=== PATIENT | male | born 1935 | race Caucasian/White ===

== ENCOUNTER 2019-08-26 12:02 | Inpatient (IN) ==
[2019-08-26] MEDS ORDERED: SODIUM CHLORIDE 0.9% 1,000 ML IV STA (12:39)
[2019-08-26] MEDS ORDERED: cefTRIAXone 1,000 MG in SODIUM CHLORIDE 0.9% 100 ML IV STA (12:39)
[2019-08-26] MEDS ORDERED: AZITHROMYCIN INJ 500 MG in SODIUM CHLORIDE 0.9% 250 ML IV STA (12:39)
[2019-08-26] MEDS ORDERED: methylPREDNISolone SOD SUC 125 MG/2 ML VIAL IV STA (12:39)
[2019-08-26] MEDS ORDERED: ALBUTEROL 2.5 MG/3 ML NEB RESP TX SCH (13:00)
[2019-08-26 13:52] LABS: Basophils % 0.8 % (0.0-0.8); Hematocrit 31.7 VOL% (42.0-52.0); Hemoglobin 10.7 GM/DL (14.0-18.0); Immature Granulocytes % 4.1 %; Immature Granulocytes Absolute 0.16 #; Lymphocytes # 1.9 10*3/uL (1.4-4.0); Lymphocytes % 48.6 % (21.2-54.2); Mean Corpuscular HGB Conc 33.8 GM/DL (32-36); Mean Corpuscular Volume 103.3 FL (87-102); Mean Platelet Volume 10.3 FL (9.6-12.0); Neutrophils % 36.5 % (38.7-73.9); Red Blood Count 3.07 MC/CUMM (3.8-5.5); Red Cell Distribution Width 16.2 % (9.3-17.3); White Blood Count 3.9 T/CUMM (4-12)
[2019-08-26 13:55] LABS: Platelet Count 30 T/CUMM (130-400)
[2019-08-26 14:00] LABS: INR 1.2; PT Patient Result 13.4 SECS (9.6-12.2); Partial Thromboplastin Time 26.2 SECS (20.8-36.0)
[2019-08-26 14:08] LABS: Alanine Aminotransferase 26 U/L (16-61); Albumin 2.9 G/DL (3.4-5.0); Alkaline Phosphatase 43 U/L (45-117); Aspartate Amino Transferase 23 U/L (0-37); Blood Urea Nitrogen 41 MG/DL (7-18); Calcium 8.4 MG/DL (8.5-10.1); Estimated Glom Filtration Rate 40 ML/MIN; Glucose 130 MG/DL (74-106); Osmolality,Calculated 284.8 MOS/KG (273-304); Total Protein 7.6 G/DL (6.4-8.3); Troponin I 0.048 NG/ML (0.00-0.045)
[2019-08-26 14:22] LABS: Anisocytosis 3+; Band Neutrophils 2 % (0-10); Lymphocytes 60 % (20-55); Macrocytosis 3+; Microcytosis 1+; Platelet Estimate Decreased; Polychromasia Slight; Reactive Lymphocytes 2+; Segmented Neutrophils 25 % (50-85); Total Cells Counted 100
[2019-08-26] MEDS ORDERED: traZODone 50 MG TABLET PO PRN (15:46)
[2019-08-26] MEDS ORDERED: ONDANSETRON 4 MG/2 ML VIAL IV PRN (15:46)
[2019-08-26] MEDS ORDERED: BISACODYL 5 MG TABLET PO PRN (15:46)
[2019-08-26] MEDS: ALBUTEROL/IPRATROPIUM 3 ML NEB RESP TX SCH (19:48)
[2019-08-26] MEDS: predniSONE 20 MG TABLET PO SCH (21:06)
[2019-08-26] MEDS: LACTATED RINGERS 1,000 ML IV SCH (21:07)
[2019-08-27] MEDS: ALBUTEROL/IPRATROPIUM 3 ML NEB RESP TX SCH ×4 (01:47→19:19)
[2019-08-27 04:52] LABS: Basophils % 0.6 % (0.0-0.8); Hematocrit 26.4 VOL% (42.0-52.0); Immature Granulocytes % 8.7 %; Immature Granulocytes Absolute 0.27 #; Lymphocytes # 0.9 10*3/uL (1.4-4.0); Lymphocytes % 29.3 % (21.2-54.2); Mean Corpuscular HGB Conc 34.1 GM/DL (32-36); Mean Corpuscular Volume 102.3 FL (87-102); Mean Platelet Volume 10.9 FL (9.6-12.0); Monocytes % 11.9 % (1.7-12.7); Neutrophils % 49.5 % (38.7-73.9); Red Blood Count 2.58 MC/CUMM (3.8-5.5); Red Cell Distribution Width 16.4 % (9.3-17.3); White Blood Count 3.1 T/CUMM (4-12)
[2019-08-27 05:03] LABS: Platelet Count 27 T/CUMM (130-400)
[2019-08-27 05:18] LABS: Calcium 7.6 MG/DL (8.5-10.1); Osmolality,Calculated 302.8 MOS/KG (273-304)
[2019-08-27 05:43] LABS: Band Neutrophils 8 % (0-10); Lymphocytes 28 % (20-55); Metamyelocytes 2 %; Platelet Estimate Decreased; Segmented Neutrophils 40 % (50-85); Total Cells Counted 100
[2019-08-27] MEDS ORDERED: GLUCAGON 1 MG VIAL IM PRN ×2 (07:20→07:55)
[2019-08-27] MEDS ORDERED: DEXTROSE 50% 25 GM/50 ML VIAL IV PRN ×2 (07:20→07:55)
[2019-08-27] MEDS: cefTRIAXone 1,000 MG in SYRINGE 1 EACH IV SCH (08:46)
[2019-08-27] MEDS: predniSONE 20 MG TABLET PO SCH ×2 (08:47→21:16)
[2019-08-27] MEDS: METOPROLOL SUCCINATE XL 25 MG TABLET PO SCH (08:47)
[2019-08-27] MEDS: LACTATED RINGERS 1,000 ML IV SCH ×2 (08:52→17:20)
[2019-08-27] MEDS: INSULIN REGULAR 100 UNIT/ML SUBCUT SCH ×3 (12:01→21:15)
[2019-08-27] MEDS: AZITHROMYCIN INJ 500 MG in SODIUM CHLORIDE 0.9% 250 ML IV SCH (17:31)
[2019-08-28 00:58] LABS: Apearance,Urine CLOUDY (Clear); Bilirubin,Urine Negative (Negative); Blood, Urine Large mg/dL (Negative); Glucose,Urine (UA) 150 mg/dL (Negative); Granular Casts,Urine 3 /LPF (0-1); Ketones,Urine Negative (Negative); Mucus,Urine Occasional /LPF (Occasional); Nitrite,Urine Negative (Negative); Protein,Urine 30 MG/DL; RBC,Urine 379 /HPF (0-4); Squamous Epithelial Cell,Urine Occasional /HPF (0-10); Urine Color Yellow (Yellow); Urine Specific Gravity 1.017 (1.001-1.035); Urine Urobilinogen < 2.0 EU/DL (0.2-1.0); WBC,Urine 43 /HPF (0-6)
[2019-08-28] MEDS: ALBUTEROL/IPRATROPIUM 3 ML NEB RESP TX SCH ×4 (00:59→19:58)
[2019-08-28 04:53] LABS: Basophils % 0.9 % (0.0-0.8); Hematocrit 25.9 VOL% (42.0-52.0); Hemoglobin 8.9 GM/DL (14.0-18.0); Immature Granulocytes % 8.2 %; Immature Granulocytes Absolute 0.26 #; Mean Corpuscular HGB Conc 34.4 GM/DL (32-36); Mean Corpuscular Volume 101.6 FL (87-102); Mean Platelet Volume 10.9 FL (9.6-12.0); Monocytes % 20.3 % (1.7-12.7); Neutrophils % 39.6 % (38.7-73.9); Red Blood Count 2.55 MC/CUMM (3.8-5.5); Red Cell Distribution Width 16.4 % (9.3-17.3); White Blood Count 3.2 T/CUMM (4-12)
[2019-08-28 05:01] LABS: Platelet Count 20 T/CUMM (130-400)
[2019-08-28 05:06] LABS: Calcium 7.3 MG/DL (8.5-10.1)
[2019-08-28 05:21] LABS: Hypochromasia 1+; Lymphocytes 27 % (20-55); Ovalocytes Slight; Platelet Estimate Decreased; Segmented Neutrophils 47 % (50-85); Total Cells Counted 100
[2019-08-28] MEDS: predniSONE 20 MG TABLET PO SCH ×2 (08:45→21:50)
[2019-08-28] MEDS: INSULIN REGULAR 100 UNIT/ML SUBCUT SCH ×4 (08:45→21:50)
[2019-08-28] MEDS: METOPROLOL SUCCINATE XL 25 MG TABLET PO SCH (08:45)
[2019-08-28] MEDS: cefTRIAXone 1,000 MG in SYRINGE 1 EACH IV SCH (08:46)
[2019-08-28] MEDS ORDERED: SODIUM CHLORIDE 0.9% 1,000 ML IV PRN (10:11)
[2019-08-28] MEDS: AZITHROMYCIN INJ 500 MG in SODIUM CHLORIDE 0.9% 250 ML IV SCH (18:31)
[2019-08-29] MEDS: ALBUTEROL/IPRATROPIUM 3 ML NEB RESP TX SCH ×4 (01:22→19:25)
[2019-08-29 06:50] LABS: Basophils % 0.8 % (0.0-0.8); Hematocrit 24.4 VOL% (42.0-52.0); Hemoglobin 8.2 GM/DL (14.0-18.0); Immature Granulocytes Absolute 0.12 #; Lymphocytes # 1.1 10*3/uL (1.4-4.0); Lymphocytes % 45.8 % (21.2-54.2); Mean Corpuscular HGB Conc 33.6 GM/DL (32-36); Mean Corpuscular Volume 102.5 FL (87-102); Mean Platelet Volume 10.5 FL (9.6-12.0); Monocytes % 17.1 % (1.7-12.7); Neutrophils % 31.3 % (38.7-73.9); Red Blood Count 2.38 MC/CUMM (3.8-5.5); Red Cell Distribution Width 16.7 % (9.3-17.3); White Blood Count 2.4 T/CUMM (4-12)
[2019-08-29 06:54] LABS: Platelet Count 45 T/CUMM (130-400)
[2019-08-29 07:06] LABS: Calcium 7.6 MG/DL (8.5-10.1); Osmolality,Calculated 306.4 MOS/KG (273-304)
[2019-08-29 07:19] LABS: Atypical Lymphocytes Few; Band Neutrophils 1 % (0-10); Hypochromasia 1+; Lymphocytes 43 % (20-55); Ovalocytes Slight; Platelet Estimate Decreased; Segmented Neutrophils 33 % (50-85); Total Cells Counted 100
[2019-08-29] MEDS: INSULIN REGULAR 100 UNIT/ML SUBCUT SCH ×4 (08:01→20:10)
[2019-08-29] MEDS: cefTRIAXone 1,000 MG in SYRINGE 1 EACH IV SCH (10:22)
[2019-08-29] MEDS: AZITHROMYCIN INJ 500 MG in SODIUM CHLORIDE 0.9% 250 ML IV SCH (10:24)
[2019-08-29] MEDS: cefTRIAXone 2,000 MG in SYRINGE 1 EACH IV SCH (11:40)
[2019-08-29] MEDS: SODIUM CHLORIDE 0.9% IV SCH (11:41)
[2019-08-29] MEDS: AZACITIDINE IV SCH (11:41)
[2019-08-29] MEDS: AZITHROMYCIN 250 MG TABLET PO SCH (11:41)
[2019-08-29] MEDS: METOPROLOL SUCCINATE XL 25 MG TABLET PO SCH (11:41)
[2019-08-29] MEDS: predniSONE 20 MG TABLET PO SCH (11:41)
[2019-08-30] MEDS: ALBUTEROL/IPRATROPIUM 3 ML NEB RESP TX SCH ×4 (00:40→19:56)
[2019-08-30 05:05] LABS: Basophils % 0.4 % (0.0-0.8); Hematocrit 27.6 VOL% (42.0-52.0); Hemoglobin 9.4 GM/DL (14.0-18.0); Immature Granulocytes % 7.9 %; Immature Granulocytes Absolute 0.19 #; Lymphocytes # 1.7 10*3/uL (1.4-4.0); Lymphocytes % 68.9 % (21.2-54.2); Mean Corpuscular HGB Conc 34.1 GM/DL (32-36); Mean Corpuscular Volume 104.5 FL (87-102); Mean Platelet Volume 11.4 FL (9.6-12.0); Monocytes % 8.7 % (1.7-12.7); Neutrophils % 14.1 % (38.7-73.9); Red Blood Count 2.64 MC/CUMM (3.8-5.5); Red Cell Distribution Width 16.3 % (9.3-17.3); White Blood Count 2.4 T/CUMM (4-12)
[2019-08-30 05:17] LABS: Calcium 7.9 MG/DL (8.5-10.1); Osmolality,Calculated 300.7 MOS/KG (273-304)
[2019-08-30 05:31] LABS: Platelet Count 36 T/CUMM (130-400)
[2019-08-30 05:53] LABS: Total Cells Counted 100
[2019-08-30 05:54] LABS: Atypical Lymphocytes Few; Hypochromasia 1+; Lymphocytes 72 % (20-55); Ovalocytes Slight; Platelet Estimate Decreased; Segmented Neutrophils 11 % (50-85)
[2019-08-30] MEDS: predniSONE 20 MG TABLET PO SCH (09:03)
[2019-08-30] MEDS: AZITHROMYCIN 250 MG TABLET PO SCH (09:03)
[2019-08-30] MEDS: METOPROLOL SUCCINATE XL 25 MG TABLET PO SCH (09:03)
[2019-08-30] MEDS: INSULIN REGULAR 100 UNIT/ML SUBCUT SCH ×4 (09:05→21:02)
[2019-08-30] MEDS: cefTRIAXone 2,000 MG in SYRINGE 1 EACH IV SCH (09:19)
[2019-08-30] MEDS: AZACITIDINE IV SCH (10:14)
[2019-08-30] MEDS: SODIUM CHLORIDE 0.9% IV SCH (10:14)
[2019-08-31] MEDS: ALBUTEROL/IPRATROPIUM 3 ML NEB RESP TX SCH ×3 (02:03→14:42)
[2019-08-31 04:39] LABS: Basophils % 0.6 % (0.0-0.8); Hemoglobin 8.8 GM/DL (14.0-18.0); Immature Granulocytes % 5.6 %; Lymphocytes # 1.2 10*3/uL (1.4-4.0); Lymphocytes % 64.2 % (21.2-54.2); Mean Corpuscular HGB Conc 33.8 GM/DL (32-36); Mean Platelet Volume 11.3 FL (9.6-12.0); Monocytes % 14.5 % (1.7-12.7); Neutrophils % 15.1 % (38.7-73.9); White Blood Count 1.8 T/CUMM (4-12)
[2019-08-31 05:03] LABS: Platelet Count 29 T/CUMM (130-400)
[2019-08-31 05:30] LABS: Atypical Lymphocytes Few; Eosinophils 1 % (0-10); Lymphocytes 64 % (20-55); Segmented Neutrophils 13 % (50-85); Total Cells Counted 100
[2019-08-31 05:31] LABS: Hypochromasia 1+
[2019-08-31 05:32] LABS: Anisocytosis 1+; Macrocytosis 1+; Ovalocytes Slight; Platelet Estimate Decreased
[2019-08-31] MEDS: INSULIN REGULAR 100 UNIT/ML SUBCUT SCH ×2 (08:05→11:40)
[2019-08-31] MEDS: predniSONE 20 MG TABLET PO SCH (09:25)
[2019-08-31] MEDS: cefTRIAXone 2,000 MG in SYRINGE 1 EACH IV SCH (09:25)
[2019-08-31] MEDS: METOPROLOL SUCCINATE XL 25 MG TABLET PO SCH (09:25)
[2019-08-31] MEDS: SODIUM CHLORIDE 0.9% IV SCH (09:51)
[2019-08-31] MEDS: AZACITIDINE IV SCH (09:51)
[2019-08-31 12:00] VITALS: BP 116/70
== END 2019-08-31 15:19 | disposition home or self-care (01) | DRG 841 ==
LOC: N.ED 12:02 → N.EDINP 15:46 → SUATTDRO 15:46 → N.2E 16:41 → N.4E 08-29 09:03
PROVIDERS: ADMIT Internal Medicine Cardiovascular Disease; ATTEND Internal Medicine

== ENCOUNTER 2019-09-26 11:10 | Observation (INO) ==
[2019-09-26] MEDS ORDERED: chlorproMAZINE INJ 25 MG in SODIUM CHLORIDE 0.9% 100 ML IV PRN (11:13)
[2019-09-26] MEDS ORDERED: MAGNESIUM HYDROXIDE SUSP 30 ML UDCUP PO PRN (11:13)
[2019-09-26] MEDS ORDERED: BENZTROPINE 2 MG/2 ML AMP IV PRN (11:13)
[2019-09-26] MEDS ORDERED: diphenhydrAMINE CAP 25 MG CAPSULE PO PRN (11:13)
[2019-09-26] MEDS ORDERED: ALPRAZolam 0.25 MG TABLET PO PRN (11:13)
[2019-09-26] MEDS ORDERED: MYLANTA/LIDO VISC 2:1 300 ML BOTTLE SWISH/SWAL PRN (11:13)
[2019-09-26] MEDS ORDERED: ALUMINUM/MAGNES/SIMETH MAX STR 30 ML UDCUP PO PRN (11:13)
[2019-09-26] MEDS ORDERED: MYLANTA/LIDO VISC 2:1 300 ML BOTTLE SWISH/SPIT PRN (11:13)
[2019-09-26] MEDS ORDERED: LOPERAMIDE 2 MG CAPSULE PO PRN ×2 (11:13)
[2019-09-26] MEDS ORDERED: LACTULOSE 20 GM/30 ML UDCUP PO PRN (11:13)
[2019-09-26] MEDS ORDERED: PROMETHAZINE INJ 25 MG in SODIUM CHLORIDE 0.9% 50 ML IV PRN (11:13)
[2019-09-26] MEDS ORDERED: guaiFENesin 200 MG/10 ML UDCUP PO PRN (11:13)
[2019-09-26] MEDS ORDERED: ONDANSETRON 4 MG/2 ML VIAL IV PRN (11:13)
[2019-09-26] MEDS ORDERED: TEMAZEPAM 7.5 MG CAPSULE PO PRN (11:13)
[2019-09-26] MEDS ORDERED: chlorproMAZINE INJ 50 MG in SODIUM CHLORIDE 0.9% 100 ML IV PRN (11:13)
[2019-09-26] MEDS ORDERED: traMADol 50 MG TABLET PO PRN (11:13)
[2019-09-26] MEDS ORDERED: chlorproMAZINE 25 MG TABLET PO PRN (11:13)
[2019-09-26] MEDS ORDERED: ACETAMINOPHEN 325 MG TABLET PO PRN (11:13)
[2019-09-26] MEDS ORDERED: SODIUM CHLORIDE 0.9% 1,000 ML IV PRN (12:24)
[2019-09-26] MEDS ORDERED: cefTRIAXone 1,000 MG in SYRINGE 1 EACH IV SCH (12:30)
[2019-09-26 21:33] LABS: Apearance,Urine CLOUDY (Clear); Bilirubin,Urine Negative (Negative); Blood, Urine Moderate mg/dL (Negative); Glucose,Urine (UA) Negative (Negative); Ketones,Urine Negative (Negative); Mucus,Urine Occasional /LPF (Occasional); Nitrite,Urine Negative (Negative); Protein,Urine 30 MG/DL; RBC,Urine 53 /HPF (0-4); Squamous Epithelial Cell,Urine Occasional /HPF (0-10); Urine Color Yellow (Yellow); Urine Urobilinogen < 2.0 EU/DL (0.2-1.0); WBC,Urine 366 /HPF (0-6)
[2019-09-27 04:41] LABS: Basophils # 0.1 10*3/uL (0.0-0.2); Basophils % 1.2 % (0.0-0.8); Hematocrit 24.8 VOL% (42.0-52.0); Hemoglobin 8.5 GM/DL (14.0-18.0); Immature Granulocytes % 27.1 %; Immature Granulocytes Absolute 1.38 #; Lymphocytes # 1.6 10*3/uL (1.4-4.0); Lymphocytes % 30.5 % (21.2-54.2); Mean Corpuscular HGB Conc 34.3 GM/DL (32-36); Mean Platelet Volume 10.2 FL (9.6-12.0); Monocytes % 9.8 % (1.7-12.7); Neutrophils % 31.4 % (38.7-73.9); Red Blood Count 2.53 MC/CUMM (3.8-5.5); Red Cell Distribution Width 15.5 % (9.3-17.3); White Blood Count 5.1 T/CUMM (4-12)
[2019-09-27 04:53] LABS: Platelet Count 26 T/CUMM (130-400)
[2019-09-27 05:03] LABS: Eosinophils 2 % (0-10); Lymphocytes 35 % (20-55); Segmented Neutrophils 49 % (50-85); Total Cells Counted 100
[2019-09-27 05:04] LABS: Hypochromasia Slight; Macrocytosis Slight; Platelet Estimate Decreased
[2019-09-27 05:05] LABS: Atypical Lymphocytes Few
[2019-09-27 08:24] VITALS: BP 94/51
== END 2019-09-27 10:01 | disposition home or self-care (01) ==
LOC: N.4E
PROVIDERS: ADMIT Specialist; ATTEND Specialist

== ENCOUNTER 2020-04-09 19:35 | Inpatient (IN) ==
[2020-04-09 20:10] LABS: Hematocrit 24.9 VOL% (42.0-52.0); Hemoglobin 8.3 GM/DL (14.0-18.0); Immature Granulocytes % 1.1 %; Immature Granulocytes Absolute 0.04 #; Lymphocytes # 1.5 10*3/uL (1.4-4.0); Lymphocytes % 42.8 % (21.2-54.2); Mean Corpuscular HGB Conc 33.3 GM/DL (32-36); Mean Corpuscular Volume 101.2 FL (87-102); Monocytes % 49.4 % (1.7-12.7); Neutrophils % 6.7 % (38.7-73.9); Red Blood Count 2.46 MC/CUMM (3.8-5.5); Red Cell Distribution Width 16.2 % (9.3-17.3); White Blood Count 3.5 T/CUMM (4-12)
[2020-04-09 20:13] LABS: Platelet Count 5 T/CUMM (130-400)
[2020-04-09 20:20] LABS: INR 1.1; PT Patient Result 12.2 SECS (9.8-11.9); Partial Thromboplastin Time 29.6 SECS (23.9-33.8)
[2020-04-09 20:23] LABS: Albumin 3.3 G/DL (3.4-5.0); Bilirubin,Total 0.9 MG/DL (0.2-1.0); Calcium 8.2 MG/DL (8.5-10.1); Total Protein 8.3 G/DL (6.4-8.3)
[2020-04-09 20:32] LABS: Band Neutrophils 1 % (0-10); Lymphocytes 68 % (20-55); Myelocytes 1 %; Segmented Neutrophils 5 % (50-85); Total Cells Counted 100
[2020-04-09 20:33] LABS: Anisocytosis Slight; Atypical Lymphocytes 2+; Macrocytosis Slight; Platelet Estimate Decreased
[2020-04-09 20:34] LABS: Polychromasia Slight
[2020-04-09] MEDS ORDERED: MEROPENEM 1,000 MG in SODIUM CHLORIDE 0.9% 100 ML IV STA (20:51)
[2020-04-09 23:05] LABS: Bilirubin,Urine Negative (Negative); Blood, Urine Moderate mg/dL (Negative); Glucose,Urine (UA) Negative (Negative); Hyaline Casts,Urine 4 /LPF (0-3); Ketones,Urine Negative (Negative); Mucus,Urine Occasional /LPF (Occasional); Nitrite,Urine Positive (Negative); Protein,Urine Negative; RBC,Urine 4 /HPF (0-4); Squamous Epithelial Cell,Urine Occasional /HPF (0-10); Urine Appearance Slightly Hazy (Clear); Urine Color Yellow (Yellow); Urine Specific Gravity 1.012 (1.001-1.035); Urine Urobilinogen < 2.0 EU/DL (0.2-1.0); WBC,Urine 64 /HPF (0-6)
[2020-04-09] MEDS ORDERED: SODIUM CHLORIDE 0.9% 1,000 ML IV PRN (23:24)
[2020-04-10] MEDS ORDERED: DEXTROSE 10% 250 ML BAG IV PRN (00:37)
[2020-04-10] MEDS ORDERED: GLUCAGON 1 MG VIAL IM PRN (00:37)
[2020-04-10] MEDS ORDERED: ONDANSETRON 4 MG/2 ML VIAL IV PRN (00:37)
[2020-04-10] MEDS ORDERED: ACETAMINOPHEN 325 MG TABLET PO PRN (00:37)
[2020-04-10 05:24] LABS: Basophils % 0.2 % (0.0-0.8); Hematocrit 22.4 VOL% (42.0-52.0); Hemoglobin 7.5 GM/DL (14.0-18.0); Immature Granulocytes % 2.1 %; Immature Granulocytes Absolute 0.09 #; Lymphocytes # 1.7 10*3/uL (1.4-4.0); Lymphocytes % 39.6 % (21.2-54.2); Mean Corpuscular HGB Conc 33.5 GM/DL (32-36); Mean Corpuscular Volume 101.8 FL (87-102); Mean Platelet Volume 9.9 FL (9.6-12.0); Monocytes % 52.8 % (1.7-12.7); Neutrophils % 5.3 % (38.7-73.9); Platelet Count 50 T/CUMM (130-400); Red Cell Distribution Width 16.4 % (9.3-17.3); White Blood Count 4.3 T/CUMM (4-12)
[2020-04-10 05:47] LABS: Calcium 8.3 MG/DL (8.5-10.1)
[2020-04-10 05:53] LABS: Atypical Lymphocytes 2+; Lymphocytes 64 % (20-55); Metamyelocytes 1 %; Myelocytes 3 %; Platelet Estimate Decreased; Segmented Neutrophils 7 % (50-85); Smudge Cells Few; Total Cells Counted 100
[2020-04-10 05:54] LABS: Anisocytosis 1+; Macrocytosis Slight
[2020-04-10] MEDS ORDERED: SODIUM CHLORIDE 0.9% 1,000 ML IV PRN ×2 (08:03→15:38)
[2020-04-10] MEDS ORDERED: GRANISETRON 1 MG/1 ML VIAL IV SCH (08:30)
[2020-04-10] MEDS ORDERED: DEXAMETHASONE INJ 10 MG in SODIUM CHLORIDE 0.9% 50 ML IV ONE ×2 (08:30)
[2020-04-10] MEDS: MEROPENEM 500 MG in SODIUM CHLORIDE 0.9% 100 ML IV SCH ×2 (08:38→18:38)
[2020-04-10] MEDS ORDERED: GRANISETRON 1 MG/1 ML VIAL IV ONE (09:20)
[2020-04-10] MEDS: AZACITIDINE IV SCH (10:18)
[2020-04-10] MEDS: SODIUM CHLORIDE 0.9% IV SCH (10:18)
[2020-04-10] MEDS ORDERED: POLYETHYLENE GLYCOL POWDER 17 GM PACK PO PRN (14:09)
[2020-04-11 01:21] LABS: Hematocrit 27.2 VOL% (42.0-52.0); Hemoglobin 9.3 GM/DL (14.0-18.0)
[2020-04-11] MEDS: MEROPENEM 500 MG in SODIUM CHLORIDE 0.9% 100 ML IV SCH ×2 (01:22→07:45)
[2020-04-11 03:35] LABS: Basophils % 0.4 % (0.0-0.8); Hematocrit 27.4 VOL% (42.0-52.0); Hemoglobin 9.6 GM/DL (14.0-18.0); Immature Granulocytes % 3.9 %; Immature Granulocytes Absolute 0.11 #; Lymphocytes # 1.1 10*3/uL (1.4-4.0); Lymphocytes % 38.9 % (21.2-54.2); Mean Corpuscular Volume 95.5 FL (87-102); Mean Platelet Volume 10.1 FL (9.6-12.0); Monocytes % 50.9 % (1.7-12.7); Neutrophils % 5.9 % (38.7-73.9); Red Blood Count 2.87 MC/CUMM (3.8-5.5); Red Cell Distribution Width 17.2 % (9.3-17.3); White Blood Count 2.8 T/CUMM (4-12)
[2020-04-11 03:38] LABS: Platelet Count 39 T/CUMM (130-400)
[2020-04-11 04:53] LABS: Anisocytosis 1+; Band Neutrophils 3 % (0-10); Lymphocytes 75 % (20-55); Segmented Neutrophils 11 % (50-85); Total Cells Counted 100
[2020-04-11 04:54] LABS: Ovalocytes 1+; Platelet Estimate Decreased; Tear Drop Cells 1+
[2020-04-11] MEDS ORDERED: METOPROLOL SUCCINATE XL 25 MG TABLET PO SCH (09:00)
[2020-04-11] MEDS ORDERED: ROSUVASTATIN 20 MG TABLET PO SCH (09:00)
[2020-04-11] MEDS ORDERED: BISACODYL 5 MG TABLET PO SCH (09:00)
[2020-04-11] MEDS: AZACITIDINE IV SCH (09:45)
[2020-04-11] MEDS: SODIUM CHLORIDE 0.9% IV SCH (09:45)
[2020-04-11 11:24] VITALS: BP 123/55
== END 2020-04-11 14:00 | disposition home health service (06) | DRG 808 ==
LOC: N.ED 19:35 → N.EDINP 21:42 → N.4E 23:00
PROVIDERS: ADMIT Emergency Medicine; ATTEND Emergency Medicine